=== PATIENT | male | born 1970 | race Caucasian/White ===

== ENCOUNTER 2018-05-13 08:54 | Emergency (ER) | payer BC ==
[2018-05-13] MEDS ORDERED: Aspirin 81 MG Tab.Chew PO ONE (09:05)
[2018-05-13] MEDS ORDERED: Sodium Chloride 0.9% 10 ML Syringe FLUSH PRN (09:05)
[2018-05-13 09:55] LABS: CHLORIDE,CL 102 mmol/L (98-107); SODIUM,NA 137 mmol/L (136-145)
[2018-05-13 09:56] VITALS: BP 126/84
--- NOTE | 2018-05-13 10:14 | EDM.PDOC ---
ED HPI GENERAL MEDICAL PROBLEM - General Chief Complaint: Chest Pain Stated Complaint: SOB,chest pressure,irregular heart rate Time Seen by Provider: 05/13/18 09:32 Source of Information: Reports: Patient History Limitations: Reports: No Limitations - History of Present Illness INITIAL COMMENTS - FREE TEXT/NARRATIVE: Patient complains of developing Afib around 5:45 am. Has had issues with Afib before but has always converted on own. Denies other chronic health problems other than excess ETOH use and elevated cholesterol Is heavy smoker. He feels that trigger for episode was gagging on toothpaste and throwing up. Says toothpaste bothers him. Mild accompanying SOB noted with irreg heart beat. Mild chest discomfort on left, 03/20. No radiation of discomfort. Did go to work at [employer] thinking that episode would go away per usual pattern. Has persisted. Was a bit lightheaded at times at work. Brought to ER from [employer] for evaluation. Symptoms improved once he arrived at ER. Monitor showed NSR during intake evaluation. Denies any other recent changes in health/diet/habits. chest Pain Score (Numeric/FACES): 1 - Related Data Allergies Allergy/AdvReac Type Severity Reaction Status Date / Time No Known Allergies Allergy Verified 05/13/18 08:59 Home Meds: Home Meds Aspirin 325 mg PO DAILY 03/11/14 [History] atorvaSTATin [Lipitor] 40 mg PO DAILY 03/11/14 [History] Past Medical History Cardiovascular History: Reports: Afib, High Cholesterol, Other (See Below) Other Cardiovascular History: hx of angiogram, hx afib Musculoskeletal History: Reports: Other (See Below) Other Musculoskeletal History: fx left pinkie toe Neurological History: Reports: Other (See Below) Other Neuro History: hx of tumor located under brain/sinus area removed at [facility] Psychiatric History: Reports: Addiction, Other (See Below) Other Psychiatric History: drinks daily 6-8 beers - Past Surgical History Male Surgical History: Reports: Other (See Below) Other Male Surgeries/Procedures: varicose vein surgery to testicle Social & Family History - Tobacco Use Smoking Status *Q: Current Every Day Smoker Years of Tobacco use: 30 Packs/Tins Daily: 2 Used Tobacco, but Quit: No - Caffeine Use Caffeine Use: Reports: Coffee Other Caffeine Use: drink coffee from 7-3 - Alcohol Use Days Per Week of Alcohol Use: 7 (Beer) Number of Drinks Per Day: 8 Total Drinks Per Week: 56 - Recreational Drug Use Recreational Drug Use: No - Living Situation & Occupation Living situation: Reports: Single, with Family Occupation: Employed ED ROS GENERAL - Review of Systems Review Of Systems: See Below Constitutional: Reports: No Symptoms HEENT: Reports: No Symptoms Respiratory: Reports: Shortness of Breath, Cough (has baseline smoker's cough per patient, no recent change in pattern). Denies: Wheezing, Pleuritic Chest Pain, Sputum, Hemoptysis Cardiovascular: Reports: Chest Pain (had mild chest tightness on left), Dyspnea on Exertion, Lightheadedness, Palpitations. Denies: Edema, Orthopnea, Syncope GI/Abdominal: Reports: No Symptoms : Reports: No Symptoms Musculoskeletal: Reports: No Symptoms Skin: Reports: No Symptoms Neurological: Denies: Confusion, Headache, Weakness, Change in Speech, Gait Disturbance Psychiatric: Reports: No Symptoms Hematologic/Lymphatic: Reports: No Symptoms ED EXAM, GENERAL - Physical Exam Exam: See Below Exam Limited By: No Limitations General Appearance: Alert, WD/WN, No Apparent Distress Eye Exam: Bilateral Eye: EOMI, PERRL Ears: Normal External Exam Nose: Normal Inspection Throat/Mouth: Normal Inspection, Normal Lips, Normal Oropharynx, Normal Voice Head: Atraumatic, Normocephalic Neck: Normal Inspection, Supple, Non-Tender, Full Range of Motion Respiratory/Chest: No Respiratory Distress, Lungs Clear, Normal Breath Sounds, No Accessory Muscle Use, Chest Non-Tender Cardiovascular: Normal Peripheral Pulses, Regular Rate, Rhythm, No Edema, No Murmur Peripheral Pulses: 2+: Radial (L), Radial (R) GI/Abdominal: Normal Bowel Sounds, Soft, Non-Tender, No Distention (Male) Exam: Deferred Rectal (Males) Exam: Deferred Back Exam: Normal Inspection Extremities: Normal Inspection, Normal Range of Motion, Non-Tender, No Pedal Edema, Normal Capillary Refill Neurological: Alert, Oriented, Normal Cognition, Normal Gait, No Motor/Sensory Deficits Psychiatric: Normal Affect, Normal Mood Skin Exam: Warm, Dry, Intact, Normal Color EKG INTERPRETATION EKG Date: 05/13/18 Time: 09:07 Rhythm: NSR Rate (Beats/Min): 92 [place]: Normal P-Wave: Present QRS: Normal ST-T: Normal QT: Normal Course - Vital Signs Last Recorded V/S: Last Vital Signs Temp 36.4 C 05/13/18 09:25 Pulse 78 05/13/18 09:55 Resp 18 05/13/18 09:55 BP 126/84 05/13/18 09:55 Pulse Ox 97 05/13/18 09:55 - Orders/Labs/Meds Orders: Active Orders 24 hr Category Date Time Status EKG Documentation Completion [RC] ASDIRECTED Care 05/13/18 09:06 Active EKG Documentation Completion [RC] STAT Care 05/13/18 09:05 Active Saline Lock Insert [OM.PC] Routine Oth 05/13/18 09:05 Ordered Labs: Laboratory Tests 05/13/18 05/13/18 05/13/18 Range/Units 09:15 09:15 09:15 WBC 7.2 (4.0-10.2) K/uL RBC 5.20 (4.33-5.41) M/uL Hgb 16.4 (13.1-16.8) g/dL Hct 48.0 (39.0-49.0) % MCV 92.3 (84.0-98.0) fL MCH 31.5 (28.2-33.3) pg MCHC 34.2 (31.7-36.0) g/dL RDW 14.9 H (11.2-14.1) % Plt Count 252 (150-350) K/uL Neut % (Auto) 67.7 (45.0-80.0) % Lymph % (Auto) 21.2 (10.0-50.0) % [place] % (Auto) 7.8 (2.0-14.0) % Eos % (Auto) 2.9 (0.0-5.0) % Baso % (Auto) 0.4 (0.0-2.0) % Neut # (Auto) 4.86 (1.40-7.00) K/uL Lymph # (Auto) 1.52 (0.50-3.50) K/uL [place] # (Auto) 0.56 (0.00-1.00) K/uL Eos # (Auto) 0.21 (0.00-0.50) K/uL Baso # (Auto) 0.03 (0.00-0.20) K/uL Sodium 137 (136-145) mmol/L Potassium 4.3 (3.5-5.1) mmol/L Chloride 102 (98-107) mmol/L Carbon Dioxide 26.8 (21.0-32.0) mmol/L BUN 12 (7-18) mg/dL Creatinine 1.18 H (0.51-1.17) mg/dL Est Cr Clr Drug Dosing 90.95 mL/min Estimated GFR (MDRD) > 60 mL/min Glucose 118 H (74-106) mg/dL Calcium 9.0 (8.5-10.1) mg/dL Magnesium 2.0 (1.8-2.4) mg/dL Total Bilirubin 0.5 (0.2-1.0) mg/dL AST 21 (15-37) U/L ALT 32 (12-78) U/L Alkaline Phosphatase 104 (46-116) IU/L Creatine Kinase 232 (26-308) U/L Creatine Kinase Index 0.7 (0.0-2.5) % CK-MB (CK-2) 1.70 (0.00-3.60) ng/mL Troponin I 0.006 (0.000-0.056) ng/mL NT-Pro-B Natriuret Pep 54 (0-125) pg/mL Total Protein 7.1 (6.4-8.2) g/dL Albumin 3.7 (3.4-5.0) g/dL Ethyl Alcohol 0.000 (0.000-0.080) g/dL Meds: Medications Discontinued Medications Generic Name Dose Route Start Last Admin Trade Name Vickq PRN Reason Stop Dose Admin Aspirin 324 mg 05/13/18 09:05 05/13/18 09:09 Aspirin PO 05/13/18 09:06 324 mg ONETIME ONE Administration Sodium Chloride 10 ml 05/13/18 09:05 Saline Flush FLUSH ASDIRECTED PRN Keep Vein Open - Re-Assessments/Exams Free Text/Narrative Re-Assessment/Exam: 05/13/18 10:16 ASA given upon arrival to ER. Patient placed on monitor. Patient is very certain that he was in Afib prior to arriving to ER as stated in HPI. Appears to have spontaneously converted on own as strip obtained in ER showed sinus rhythm. Labs overall unremarkable, including CBC/Chem/Troponin/Mg/CKMB. ETOH level 0.0 Vital signs stable, patient without complaints. Remained in NSR. Patient admits to large amount of daily ETOH use. Appears to have had a bit more than his normal amount last night. This could have been a trigger for this morning's episode. Time spent with patient discussing potential Afib triggers, including ETOH use. Encouraged AA attendance and trying to get help to address ETOH use/dependence. Patient is not acutely interested in quitting smoking or ETOH at this time. Given unremarkable workup and resolution of symptoms, patient discharged from ER. Precautions reviewed at length. To follow up as needed. Departure - Departure Time of Disposition: 10:11 Disposition: Home, Self-Care 01 Condition: Good Clinical Impression: Afib, Atrial fibrillation Instructions: Atrial Fibrillation, [id number] Referrals: PCP,Unknown [Primary Care Provider] - Forms: ED Department Discharge Additional Instructions: Observe for changes/re-development of AFib, and follow up as needed if you have problems. Recommend Mag Glycinate 250mg (approximately) daily. If you do not like traditional toothpaste go to [employer] website and try Dirty Mouth Toothpowder. Please consider some of the strategies we discussed on discontinuing the alcohol use, including 5-10min of meditation/mindfulness training twice daily. There are a ton of phone apps you can download to help with that. - My Orders Last 24 Hours: My Active Orders 05/13/18 09:05 EKG Documentation Completion [RC] STAT Saline Lock Insert [OM.PC] Routine 05/13/18 09:06 EKG Documentation Completion [RC] ASDIRECTED - Assessment/Plan Last 24 Hours: My Active Orders 05/13/18 09:05 EKG Documentation Completion [RC] STAT Saline Lock Insert [OM.PC] Routine 05/13/18 09:06 EKG Documentation Completion [RC] ASDIRECTED
== END 2018-05-13 10:35 | disposition home or self-care (01) ==
LOC: LL.ED 08:54
DX: I48.91 Unspecified atrial fibrillation (principal); F17.210 Nicotine dependence, cigarettes, uncomplicated; Z79.82 Long term (current) use of aspirin
CPT/HCPCS: 36415; 80053; 82550; 82553; 83735; 83880; 84484; 85025; 93005; 99285-25; A9270-GY; G0480

== ENCOUNTER 2020-04-28 08:35 | Day surgery (SDC) | payer BC ==
[~2020-04-28 08:35] MED LIST: Midazolam 1 MG/ML 2 ML SDV ONE; Propofol 200 MG/20 ML SDV ONE; Sodium Chloride 0.9% 10 ML Syringe FLUSH PRN
[2020-04-28] MEDS: Lactated Ringers 1,000 ML IV SCH (10:07)
--- NOTE | 2020-04-28 10:17 | PCM.HPR ---
H & P Addendum review - H & P Addendum Review Date of Original H & P: 04/14/20 Date Reviewed: 04/28/20 Time Reviewed: 10:17 Patient was Examined: No Changes
[2020-04-28] MEDS ORDERED: Lidocaine 1% 50 MG/5 ML Syringe ONE (10:20)
[2020-04-28] MEDS ORDERED: Lidocaine 2% 5 ML SDV ONE (10:20)
[2020-04-28] MEDS ORDERED: Ketamine 500 mg/10 ML MDV ONE ×2 (10:20→10:32)
[2020-04-28] MEDS ORDERED: Propofol 200 MG/20 ML SDV ONE ×2 (10:20→11:09)
[2020-04-28] MEDS ORDERED: Midazolam 1 MG/ML 2 ML SDV ONE (10:20)
[2020-04-28] MEDS ORDERED: Glycopyrrolate 0.2 MG/ML SDV ONE (10:20)
--- NOTE | 2020-04-28 11:00 | PCM.OPNOTE ---
- General Post-Op/Procedure Note Date of Surgery/Procedure: 04/28/20 Operative Procedure(s): EGD and colonoscopy with polypectomy Findings: Reflux Esophagitis Rectal polyp Pre Op Diagnosis: GERD, screening Post-Op Diagnosis: Same Anesthesia Technique: MAC Primary Surgeon: Ronni Mora Anesthesia Provider: Janet Veliz Complications: None Condition: Good
[2020-04-28 12:06] VITALS: BP 112/73; PULSE 124
--- NOTE | 2020-04-28 14:08 | OR ---
Date of Procedure: 04/28/2020 PREOPERATIVE DIAGNOSES: 1. Gastroesophageal reflux disease. 2. History of colon polyps. POSTOPERATIVE DIAGNOSES: 1. Reflux esophagitis. 2. Rectal polyp. PROCEDURES: 1. EGD. 2. Colonoscopy with polypectomy. ANESTHESIA: IV sedation. PROCEDURE IN DETAIL: Patient was brought to the procedure room where he was placed on the left side after anesthetic gargle was given. Oral bite block was placed. Upper endoscope was eventually passed into the esophagus after difficulty because of a hypersensitive gag reflex and coughing. With the addition of IV lidocaine and ketamine, I was able to insert an upper endoscope into the esophagus and advanced to the third portion of the duodenum. Duodenum and pylorus were normal. Antrum and body of the stomach appeared normal. Retroflexion revealed a loose lower esophageal sphincter. The squamocolumnar junction is normal. However, there were a few erosions in the distal esophagus consistent with reflux esophagitis. The patient was coughing during the procedure and was unable to safely get a biopsy. Air was removed from the stomach, and the scope withdrawn through the remaining esophagus which appears normal. Vocal cords were viewed and appeared normal. The patient did tolerate this fairly well and did stop coughing after the scope was done. Next, colonoscopy was performed after digital rectal exam was done, which was normal. Colonoscope was inserted and advanced to the level of the cecum without difficulty. Cecal position was confirmed by identifying the appendiceal lumen and ileocecal valve. Prep was good and surfaces were well visualized. Upon withdrawing the scope, the ascending, transverse, and descending colon were normal in appearance. The rectum has a 6 mm sessile polyp located 8 cm from the anal verge that was removed with a cautery snare and retrieved in the polyp trap. Retroflexion was normal. Air was removed and the scope withdrawn. Patient tolerated the procedure well and returned to recovery in stable condition. RECOMMENDATIONS: The patient to follow up with Destinee Sheikh next week. He would benefit from starting a proton pump inhibitor and will likely need this manager long term care as it appears he has a weak lower esophageal sphincter and will likely always have reflux issues. I would recommend that he undergo a colonoscopy again in 5 years. YAQUELIN ESCALONA MD /[id number]
== END 2020-04-28 11:41 | disposition home or self-care (01) ==
LOC: LL.SDS 08:35
PROVIDERS: ATTEND Surgery
DX: Z12.11 Encounter for screening for malignant neoplasm of colon (principal); K62.1 Rectal polyp; K21.00 Gastro-esophageal reflux disease with esophagitis, without bleeding; I10 Essential (primary) hypertension; F10.10 Alcohol abuse, uncomplicated; F17.210 Nicotine dependence, cigarettes, uncomplicated; I48.91 Unspecified atrial fibrillation; E78.00 Pure hypercholesterolemia, unspecified; Z86.010 Personal history of colon polyps; Z79.82 Long term (current) use of aspirin; Z01.812 Encounter for preprocedural laboratory examination; Z20.822 Contact with and (suspected) exposure to COVID-19; Z79.899 Other long term (current) drug therapy; Z98.890 Other specified postprocedural states
CPT/HCPCS: 00813; J2250; J2704; J3490; J7120; U0002

== ENCOUNTER 2024-08-27 09:34 | Day surgery (SDC) | payer BC ==
[2024-08-27] MEDS: Lactated Ringers 1,000 ML IV SCH (09:38)
[2024-08-27] MEDS ORDERED: Ketamine 500 mg/10 ML MDV ONE (10:26)
[2024-08-27] MEDS ORDERED: Ketamine 500 mg/10 ML MDV IV ONE (10:30)
[2024-08-27] MEDS ORDERED: Lidocaine 2% 5 ML SDV ONE (10:30)
[2024-08-27] MEDS ORDERED: Glycopyrrolate 0.2 MG/ML SDV IVPUSH ONE (10:30)
[2024-08-27 11:39] VITALS: BP 106/74; PULSE 103
== END 2024-08-27 11:45 | disposition home or self-care (01) ==
LOC: LL.SDS 09:34
PROVIDERS: ATTEND Surgery
DX: Z12.11 Encounter for screening for malignant neoplasm of colon (principal); K21.00 Gastro-esophageal reflux disease with esophagitis, without bleeding; E78.5 Hyperlipidemia, unspecified; I10 Essential (primary) hypertension; E66.9 Obesity, unspecified; E11.9 Type 2 diabetes mellitus without complications; F17.210 Nicotine dependence, cigarettes, uncomplicated; Z79.82 Long term (current) use of aspirin; Z79.84 Long term (current) use of oral hypoglycemic drugs; Z68.37 Body mass index [BMI] 37.0-37.9, adult; Z79.899 Other long term (current) drug therapy; Z86.0100 Personal history of colon polyps, unspecified
CPT/HCPCS: J1596; J2003; J2250; J2704; J3490; J7120